=== PATIENT | female | born 1975 | race Two or more races ===

== ENCOUNTER 2019-06-11 15:34 | Outpatient (CLI) | payer OTHER ==
[~2019-06-11] VITALS: Ht 162.6 cm; Wt 77.0 kg
[~2019-06-11 15:34] MED LIST: PREN-99 PO
[2019-06-11 16:00] VITALS: Ht 162.6 cm; Wt 77.0 kg
[2019-06-11 16:07] VITALS: BP 94/62; PULSE 92; RESP 18
== END 2019-06-11 18:50 | disposition home or self-care (01) ==
LOC: OBT 15:34 → L-D 15:35 → OBT 18:50
PROVIDERS: ATTEND Obstetrics & Gynecology
DX: O47.1 False labor at or after 37 completed weeks of gestation (principal); O09.513 Supervision of elderly primigravida, third trimester; Z3A.37 37 weeks gestation of pregnancy
CPT/HCPCS: G0463

== ENCOUNTER 2019-06-14 02:07 | Inpatient (IN) | payer OTHER ==
[~2019-06-14] VITALS: Ht 157.5 cm; Wt 76.4 kg
[2019-06-14 02:24] VITALS: Ht 157.5 cm; Wt 76.4 kg
[2019-06-14 02:25] VITALS: BP 120/58; PULSE 66; RESP 18
[2019-06-14] MEDS ORDERED: LACTATED RINGER'S 1,000 ML IV PRN (02:55)
[2019-06-14] MEDS ORDERED: LIDOCAINE 1% (MPF) 30 ML INJ INJ PRN (03:00)
[2019-06-14] MEDS ORDERED: OXYTOCIN 30 UNITS/LR 500 ML IV PRN ×2 (03:00→15:30)
[2019-06-14] MEDS ORDERED: OXYTOCIN 30 UNITS/LR 500 ML IV SCH ×3 (03:00)
[2019-06-14] MEDS ORDERED: BUTORPHANOL 2 MG INJ IV PRN (03:00)
[2019-06-14] MEDS ORDERED: MISOPROSTOL 200 MCG TAB PR PRN ×2 (03:00→15:30)
[2019-06-14] MEDS ORDERED: CARBOPROST 250 MCG INJ IM PRN ×2 (03:00→15:30)
[2019-06-14] MEDS ORDERED: METHYLERGONOVINE 0.2 MG INJ IM PRN ×2 (03:00→15:30)
[2019-06-14] MEDS: LACTATED RINGER'S 1,000 ML IV SCH ×2 (03:32→13:02)
--- NOTE | 2019-06-14 03:47 | TRIAGE ---
OB Triage Datetime Report Generated by CPN: 06/14/2019 03:47 Datetime: 06/14/2019 03:37 Assessment Type: Admission Assessment Vaginal Bleeding: None Maternal Assessment Level of Consciousness: Keenly Alert, Responsive DTR's/Clonus: DTRs 2+; No Clonus Headache: Denies Blurred Vision: No Respiratory Effort: Unlabored; Regular Rhythm; Equal Expansion Breath Sounds, Left: Clear and Equal Breath Sounds, Right: Clear and Equal Nausea/Vomiting: Denies RUQ Epigastric Pain: Denies Facial Edema: None Fall Risk Assessment History of Falling: (0) No Secondary Diagnosis: (0) No Ambulatory Aid: (0) Bedrest/Nurse Assist IV Therapy: (0) No Gait: (0) Normal/Bedrest/Immobile Mental Status: (0) Oriented to Own Ability Fall Score: 0 Fall Risk Score Definition: No Risk: No action required Pain Assessment Pain Scale: 10 Pain Presence: Intermittent Pain Type: Contraction Pain Location: Back Pain Goal: 3 Membrane Status: Ruptured Membranes Ruptured Date/Time: 06/14/2019 01:45 Membranes Rupture Method: Spontaneous Datetime: 06/14/2019 02:55 Membrane Status: Ruptured Datetime: 06/14/2019 02:42 Stage of : OB Triage Vaginal Exam Dilatation (cms): 0.0 Exam By: Jatinder, RN Datetime: 06/14/2019 02:40 Stage of : OB Triage Assessment Type: Triage Maternal Assessment Level of Consciousness: Keenly Alert, Responsive DTR's/Clonus: DTRs 2+; No Clonus Headache: Denies Blurred Vision: No Respiratory Effort: Unlabored; Regular Rhythm; Equal Expansion Breath Sounds, Left: Clear and Equal Breath Sounds, Right: Clear and Equal Nausea/Vomiting: Denies RUQ Epigastric Pain: Denies Lower Extremities Edema: None Degree: None Upper Extremities Edema: None Degree: None Facial Edema: None Temperature Route: Oral Fall Risk Assessment History of Falling: (0) No Secondary Diagnosis: (0) No Ambulatory Aid: (0) Bedrest/Nurse Assist IV Therapy: (0) No Gait: (0) Normal/Bedrest/Immobile Mental Status: (0) Oriented to Own Ability Fall Score: 0 Fall Risk Score Definition: No Risk: No action required Labor Evaluation Frequency: irregular Monitor Mode: External Duration (sec)2399: 40-60 Pattern: Normal: <= 5 Contractions in 10 Minutes Resting Tone [place]: Relaxed Heart Rate FHR Baseline Rate: 120 Monitor Mode: External US Variability: Moderate 6-25 bpm Accelerations: 15X15 Decelerations: None Category: Category I Pain Assessment Pain Scale: 3 Pain Presence: Intermittent Pain Type: Contraction Pain Location: Abdomen; Back Pain Goal: 3 Pain Relief Measures: Comfort Measures Pool: Negative Nitrazine: Positive Datetime: 06/14/2019 02:33 Time of Arrival: 06/14/2019 02:03 EGA: 38.1 Arrived By: Ambulatory Arrived From: Home Chief Complaint: Patient states that water broke at 0130 and contractions began Movement: Present Contractions: Irregular Time Contractions Began: 06/14/2019 01:30 Rupture of Membranes: Ruptured Vaginal Bleeding: None Abdominal Trauma: Not Applicable Patient Complaints: Contractions Time Provider Notified: 06/14/2019 02:52 Provider Notified: Marry Initial Plan: VS, EFM, Sterile Speculum, SVE Datetime: 06/11/2019 16:17 Fall Score: 0 Fall Risk Score Definition: No Risk: No action required Datetime: 06/11/2019 16:14 EGA: 37.5
--- NOTE | 2019-06-14 04:45 | PREAC ---
Date/Time of Note Date/Time of Note DATE: 06/14/19 TIME: 04:43 Anesthesia Eval and Record Evaluation Time Pre-Procedure Interview DATE: 06/14/19 TIME: 03:58 Age 43 Sex female NPO: 8 hrs Preoperative diagnosis iup @ 38 wks., labor, , h/o hep. B Planned procedure huan Past Medical History Past Medical History: Includes Hepatic: Hepatitis : : (1), Para: (0), Gestational age: (38 wks.) Surgery & Anesthesia Issues No known issue Meds Anticoagulation: No Beta Tristan within 24 hr: No Reason Beta Tristan not given: Pt. not on B-Tristan Reported Medications Vit #76/Iron,Carb/FA (Pnv 29-1 Tablet) 1 Each Tablet, 1 EACH PO DAILY, TAB 06/11/19 Current Medications Lactated Ringer's 1,000 ml @ 125 mls/hr Q8H IV Last administered on 06/14/19at 03:32; Admin Dose 125 MLS/HR; Start 06/14/19 at 02:55 Butorphanol Tartrate (Stadol) 2 mg Q2H PRN IV .PAIN SCALE 6-10; Start 06/14/19 at 03:00 Lidocaine (Xylocaine 1% (Mpf)) 30 ml ONCE PRN INJ .EPISIOTOMY; Start 06/14/19 at 03:00 Oxytocin/Lactated Ringer's 500 ml @ 500 mls/hr ONCE POST IV ; Start 06/14/19 at 03:00 Oxytocin/Lactated Ringer's 500 ml @ 125 mls/hr POST IV ; Start 06/14/19 at 03:00 Lactated Ringer's 1,000 ml @ 2,000 mls/hr Q30M PRN IV .ANESTHESIA; Start 06/14/19 at 02:55 Oxytocin/Lactated Ringer's 500 ml @ 0 mls/hr ONCE PRN IV .VAGINAL BLEEDING; Start 06/14/19 at 03:00 Methylergonovine Maleate (Methergine) 0.2 mg ONCE PRN IM .VAGINAL BLEEDING; Start 06/14/19 at 03:00 Carboprost Tromethamine (Hemabate) 250 mcg ONCE PRN IM .VAGINAL BLEEDING; Start 06/14/19 at 03:00 Misoprostol (Cytotec) 1,000 mcg ONCE PRN [place] .VAGINAL BLEEDING; Start 06/14/19 at 03:00 Oxytocin/Lactated Ringer's 500 ml @ 0 mls/hr FOR INDUCTION IV ; Start 06/14/19 at 03:00 Meds reviewed: Yes Allergies Coded Allergies: No Known Drug Allergies (Verified Allergy, Unknown, 06/11/19) Allergies Reviewed: Yes Labs/Studies Labs Reviewed: Reviewed by anesthesiologist Result Diagram: 06/14/19 0327 Laboratory Tests 06/14/19 03:27 test: Positive Studies: ECG (n/a), CXR (n/a) Pre-procedure Exam Last vitals Vital Signs Date Temp Pulse Resp B/P (MAP) Pulse Ox O2 O2 Flow FiO2 Time Delivery Rate 06/14/19 98.3 66 18 120/58 Room Air 02:25 (78) Airway: Adequate mouth opening, Adequate thyromental dist Mallampati: Mallampati II Teeth: Normal Lung: Normal Heart: Normal ASA Physical Status ASA physical status: 3 Emergency: E Planned Anesthetic Neuraxial: Epidural Planned Pain Management Epidural, Parenteral pain med, Local by surgeon Pre-operative Attestations Prior to commencing anesthesia and surgery, the patient was re-evaluated, there was verification of: *The patient's identity *The results of appropriate recent lab work and preoperative vital signs *The above evaluation not changing prior to induction *Anesthetic plan, risk benefits, alternative and complications discussed with patient/family; questions answered; patient/family understands, accepts and wishes to proceed. Professional [employer] Fisherman used MEGHAN BRADLEY MD Jun 14, 2019 04:45
[2019-06-14] MEDS ORDERED: FENTAnyl 2MCG/ML-ROPIV 0.2% 100 ML BAG EPI SCH (05:00)
[2019-06-14] MEDS ORDERED: NALOXONE (0.4 MG/ML) INJ IV PRN (05:00)
[2019-06-14] MEDS ORDERED: ONDANSETRON 4 MG INJ IV PRN ×2 (05:00→15:30)
[2019-06-14] MEDS ORDERED: NALBUPHINE HCL (10 MG/1 ML) INJ IV PRN (05:00)
[2019-06-14] MEDS ORDERED: TERBUTALINE 1 MG/ML INJ SC ONE (08:30)
[2019-06-14] MEDS ORDERED: TERBUTALINE 1 ML ONE (08:34)
--- NOTE | 2019-06-14 09:06 | PN ---
Date/Time of Note Date/Time of Note DATE: 06/14/19 TIME: 09:04 OB Subjective Subjective Subjective transport aircrewman used called to fbc8 for deceleration decel noted x 8 min with david to 50 fse placed terbutaline ordered positional movements not on pitocin initial sve on exam was c/c.+2 during contraction. asked to break down bed in anticipation for trial of pushing without contraction, sve 6/c/[address] patient back in original position resolution of prolonged deceleration MILESTONE,MARIA DOLORES HANSON Jun 14, 2019 09:06
--- NOTE | 2019-06-14 09:51 | NSTRPT ---
NST Information Datetime Report Generated by CPN: 06/14/2019 09:51 Datetime: 06/11/2019 10:17 NST Information EGA: 37.5 Datetime: 06/11/2019 10:15 Test Number: 1 Time on Monitor: 06/11/2019 10:49 Time off Monitor: 06/11/2019 11:26 NST Duration (Min): 37 Reason for NST: Other Reason for NST Other: large fibroid, Advanced Maternal Age Test and Monitor Explained: Monitor Explained; Test Explained; Verbalized Understanding Pulse: 87 Resp: 18 SBP: 97 DBP: 54 Test Evaluation NST Interventions: None Patient States Movement: Present Contraction Frequency: NONE FHR Baseline : 140 Variability: Moderate 6-25bpm Accelerations: 15X15 Decelerations: None FHR Category: Category I NST Results: Reactive Comments: TO US ROBERT 22.0 cm cephalic Electronically Signed By E-Signature: with User ID: [id number], Addendum/Amendment: Signed for Dr. Rudolph.
[2019-06-14] MEDS ORDERED: MINERAL OIL LIGHT 10 ML VIAL TOP ONE (11:30)
[2019-06-14] MEDS: OXYTOCIN 30 UNITS/LR 500 ML IV SCH ×2 (15:15→17:22)
--- NOTE | 2019-06-14 15:15 | OPPN ---
Date/Time of Note Date/Time of Note DATE: 06/14/19 TIME: 15:11 Operative Report Planned Procedure Procedure date Jun 14, 2019 Procedure(s) VACUMM APPLICATION Performed by see signature line Metal Forger'S Assistant: A 2nd Metal Forger'S Assistant none Pre-procedure diagnosis 38 1/7 WEEKS RUPTURED BAG OF WATER [id number] Anesthesia Type: [id number] epidural Post-Procedure Post-procedure diagnosis 38 1/7 IUP MATERNAL EXHAUSTION Findings Live Baby BOY, Apgars 9and 9, weight 7LBS 5OZ Estimated Blood Loss: 300 - 400 mls Specimen(s) none Grafts/Implant(s) none Complication(s) none KEVIN SMITH MD Jun 14, 2019 15:15
[2019-06-14] MEDS ORDERED: LANOLIN HPA 1 PKT TOP PRN (15:30)
[2019-06-14] MEDS ORDERED: HYDROCODONE/APAP (5/325) TAB PO PRN ×2 (15:30)
[2019-06-14] MEDS ORDERED: WITCH HAZEL/GLYCERIN PAD PR PRN (15:30)
[2019-06-14] MEDS ORDERED: DIPHENHYDRAMINE 25 MG CAP PO PRN (15:30)
[2019-06-14] MEDS ORDERED: ZOLPIDEM 5 MG TAB PO PRN (15:30)
[2019-06-14] MEDS ORDERED: NA PHOSPHATE/BIPHOS 133 ML ENEMA PR PRN (15:30)
[2019-06-14] MEDS ORDERED: BENZOCAINE 20% 56 ML SPRAY TOP PRN (15:30)
[2019-06-14] MEDS ORDERED: METHYLERGONOVINE 0.2 MG TAB PO PRN (15:30)
[2019-06-14] MEDS ORDERED: MAGNESIUM HYDROXIDE 30ML CUP PO PRN (15:30)
[2019-06-14 16:30] VITALS: BP 98/58; PULSE 81; RESP 18
[2019-06-14] MEDS: LACTATED RINGER'S 1,000 ML IV* SCH ×2 (16:30→23:15)
[2019-06-14 17:30] VITALS: BP 99/60; RESP 20
[2019-06-14] MEDS: IBUPROFEN 800 MG TAB PO PRN (18:09)
[2019-06-14 20:00] VITALS: BP 98/52; PULSE 66; RESP 20
[2019-06-14] MEDS: SENNA/DOCUSATE NA (8.6MG/50MG) TAB PO SCH (21:50)
[2019-06-15] VITALS: BP 136/74; PULSE 69; RESP 18
[2019-06-15 04:00] VITALS: BP 94/50; PULSE 77; RESP 18
[2019-06-15] MEDS: IBUPROFEN 800 MG TAB PO PRN ×4 (05:47→23:37)
--- NOTE | 2019-06-15 06:53 | PREOPHP ---
DATE OF ADMISSION: 06/14/2019 HISTORY OF PRESENT ILLNESS: This is a 43-year-old lady, 1, para 0, EDC 06/27/2019 at 38-1/7 weeks, admitted to labor and delivery area in early labor with leaking bag of water since 1:45 a.m. on 06/14/2019 followed by contractions. She had care in my [place] office and the care was uneventful except that she is known to have fibroid uterus about 7 x 7 cm. PAST PERSONAL HISTORY: No history of diabetes, TB, asthma. ALLERGIES: NO ALLERGIES. SOCIAL HISTORY: The patient does not smoke. She does not drink. MEDICATIONS: She does not take any drugs except her iron and vitamins. GYNECOLOGIC HISTORY: She had menarche at the age of 15, every 28 days interval, 3 to 4 days duration, and moderate in amount. FAMILY HISTORY: Sister has diabetes, otherwise noncontributory. REVIEW OF SYSTEMS: CARDIOVASCULAR: No chest pains. RESPIRATORY: No cough. GASTROINTESTINAL: No diarrhea, no vomiting. GENITOURINARY: No dysuria. PHYSICAL EXAMINATION: GENERAL: Reveals a conscious, coherent lady and in no acute distress. VITAL SIGNS: Her blood pressure 120/80, pulse rate 80 per minute, respirations 16 per minute. BREASTS, HEART AND LUNGS: Within normal limits. ABDOMEN: Soft, fundic height 37 cm. heart tones 140 per minute. PELVIC: On admission done by nurse revealed the cervix to be 2 cm dilated, 100% effaced, station -2 in cephalic presentation with the bag of water ruptured. Nitrazine PROM test was positive. EXTREMITIES: No pedal edema. ADMITTING DIAGNOSIS: A 38 and 1/7 weeks intrauterine in labor with ruptured bag of water. The patient was planned to be observed for progress of labor. Ultrasound was ordered and the estimated weight is about 7 pounds 3 ounces. The plans of delivery were explained to the patient and to her partner, asked to go for vaginal delivery. The risks, benefits, and alternatives of vaginal delivery and was explained to the patient and the risks of explained. Both of them wanted to go for vaginal delivery, so she was planned to be observed for progress of labor. If contractions, then she will be given Pitocin augmentation if needed, so the patient was started on Pitocin augmentation and she had 1 episode of prolonged deceleration of 7 minutes and oxygen and change of position was done and scalp electrode was inserted by the laborist and the baby had recovered. After a few hours of recovery, then the patient was restarted on Pitocin augmentation. Then at 12:35, the patient was noted to be completely dilated and at a station 0. So the epidural was stopped and the Pitocin was restarted and the patient was coached to push and the patient had pushed from 12:25. Dictated By: KEVIN BOWMAN/CANDY Conf#: [id number] DID#: [id number] MTDD
[2019-06-15 08:18] VITALS: BP 96/50; PULSE 73; RESP 18
--- NOTE | 2019-06-15 08:43 | OPR ---
DATE OF OPERATION: 06/15/2019 This is a 43-year-old lady, 1, EDC 06/27/2019 at 38-1/7 weeks, admitted to labor and delivery area in labor with ruptured bag of water at 1:45 a.m. 06/14/2019. HISTORY OF PRESENT ILLNESS: See dictated history and physical. PHYSICAL EXAMINATION: See dictated history and physical. ADMITTING DIAGNOSIS: 38 and 1/7-weeks intrauterine in labor. PROGRESS OF LABOR: See dictated history and physical. The patient had 17 minutes prolonged decelera tion in the morning at 8:30 a.m. and the baby had recovered. She was restarted on Pitocin augmentati on and the patient received labor epidural as well and the patient progressed well. When she was com pleted dilated and when the patient felt the pushing after the epidural was stopped, she was coached to push and the patient was pushing for almost 1-1/2 hours and the baby went up to almost , b ut the patient cannot push the baby head. Because of maternal exhaustion, the patient complains of b eing very tired, so when she was almost , then the vacuum was applied once and after 4 second s delivered a healthy baby boy, Apgars 9 and 9 at 14:25 p.m. weighing 7 pounds 5 ounces, 3325 grams, 19-1/2 inches long over a midline episiotomy. The placenta was delivered spontaneously and complete. Manual exploration of the uterus revealed no membranes left behind. Cervix, vagina, and vulv a were free of hematoma. The position was direct occiput anterior. There were 3 vessels in the cord . The placenta was normal with a small shiny side and a pinkish maternal side. Midline episio dixie was repaired in layers using 2-0 chronic with 1% Xylocaine. The patient tolerated the delivery well. ESTIMATED BLOOD LOSS: About 400. Vital signs were stable during and after the delivery. Dictated By: KEVIN BOWMAN/CANDY Conf#: [id number] DID#: [id number]
[2019-06-15] MEDS: SENNA/DOCUSATE NA (8.6MG/50MG) TAB PO SCH ×2 (09:06→20:57)
[2019-06-15 12:10] VITALS: BP 90/55; PULSE 68; RESP 17
--- NOTE | 2019-06-15 14:28 | PN ---
Date/Time of Note Date/Time of Note DATE: 06/15/19 TIME: 14:26 Assessment/Plan VTE Prophylaxis Risk score (from Ns)>0 risk: 1 SCD applied (from Ns): No SCD contraindicated: low risk/ambulating Pharmacological prophylaxis: NA/contraindicated Pharm contraindication: low risk/ambulating Lines/Catheters IV [facility] Peripheral IV Assessment/Plan Assessment/Plan POST DAY 1 CHRONIC IRON DEFICIENCY ANEMIA HOME TOMORROW RETURN TO CLINIC IN 2 WEEKS CONTINUE WITH VITAMINS OD AND FERROUS SULFATE PO TID DIET ADVISED COUNSELED INSTRUCTED CALL OFFICE IF THERE IS ANY PROBLEMS OR CONCERN Result Diagram: 06/15/19 0736 Results 24hrs Laboratory Tests Test 06/15/19 07:36 White Blood Count 12.8 #H Red Blood Count 3.51 #L Hemoglobin 9.8 #L Hematocrit 30.1 #L Mean Corpuscular Volume 85.8 Mean Corpuscular Hemoglobin 27.9 L Mean Corpuscular Hemoglobin Concent 32.6 Red Cell Distribution Width 14.1 Platelet Count 134 #L Mean Platelet Volume 10.8 H Immature Granulocytes % 1.000 H Neutrophils % 80.6 H Lymphocytes % 12.2 L Monocytes % 5.5 Eosinophils % 0.5 Basophils % 0.2 Nucleated Red Blood Cells % 0.0 Immature Granulocytes # 0.130 H Neutrophils # 10.3 H Lymphocytes # 1.6 Monocytes # 0.7 Eosinophils # 0.1 Basophils # 0.0 Nucleated Red Blood Cells # 0.0 Subjective 24 Hr Interval Summary Free Text/Dictation FEELS GOOD, GOOD URINE OUTPUT, GOOD BOWEL MOVEMENT Exam/Review of Systems Exam Vitals Vital Signs Date Temp Pulse Resp B/P (MAP) Pulse Ox O2 O2 Flow FiO2 Time Delivery Rate 06/15/19 98.2 68 17 90/55 (67) Room Air 12:10 Intake and Output 06/14/19 06/14/19 06/15/19 1515:00 23:00 07:00 IntakeIntake Total 1900 ml 270 ml OutputOutput Total 600 ml 1323 ml BalanceBalance 1300 ml -1053 ml Exam VITAL SIGNS STABLE: YES AFEBRILE: YES BREAST NOT ENGORGED, NON-TENDER, NO APPRECIABLE MASS: YES LUNGS CLEAR, NO RALES, WHEEZES, RHONCHI: YES SINUS RHYTHM WITHOUT MURMUR: YES ABDOMEN: NON-TENDER FUNDUS: BELOW UMBILICUS BOWEL SOUNDS: PRESENT UTERUS: FIRM INTACT PERINEUM: YES LOCHIA: LIGHT DEEP TENDON REFLEXES: 0 EXTREMITIES: NO CALF TENDERNESS EDEMA SCALE: NONE Results Results 24hrs Laboratory Tests Test 06/15/19 07:36 White Blood Count 12.8 #H Red Blood Count 3.51 #L Hemoglobin 9.8 #L Hematocrit 30.1 #L Mean Corpuscular Volume 85.8 Mean Corpuscular Hemoglobin 27.9 L Mean Corpuscular Hemoglobin Concent 32.6 Red Cell Distribution Width 14.1 Platelet Count 134 #L Mean Platelet Volume 10.8 H Immature Granulocytes % 1.000 H Neutrophils % 80.6 H Lymphocytes % 12.2 L Monocytes % 5.5 Eosinophils % 0.5 Basophils % 0.2 Nucleated Red Blood Cells % 0.0 Immature Granulocytes # 0.130 H Neutrophils # 10.3 H Lymphocytes # 1.6 Monocytes # 0.7 Eosinophils # 0.1 Basophils # 0.0 Nucleated Red Blood Cells # 0.0 Medications Medication Current Medications Butorphanol Tartrate (Stadol) 2 mg Q2H PRN IV .PAIN SCALE 6-10; Start 06/14/19 at 03:00 Lidocaine (Xylocaine 1% (Mpf)) 30 ml ONCE PRN INJ .EPISIOTOMY Last administered on 06/14/19 14:32; Admin Dose 30 ML; Start 06/14/19 at 03:00 Oxytocin/Lactated Ringer's 500 ml @ 500 mls/hr ONCE POST IV Last administered on 06/14/19 14:29; Admin Dose 500 MLS/HR; Start 06/14/19 at 03:00 Oxytocin/Lactated Ringer's 500 ml @ 125 mls/hr POST IV Last administered on 06/14/19 14:53; Admin Dose 125 MLS/HR; Start 06/14/19 at 03:00 Lactated Ringer's 1,000 ml @ 2,000 mls/hr Q30M PRN IV .ANESTHESIA Last administered on 06/14/19 04:47; Admin Dose 2,000 MLS/HR; Start 06/14/19 at 02:55 Oxytocin/Lactated Ringer's 500 ml @ 0 mls/hr FOR INDUCTION IV Last administered on 06/14/19 07:53; Admin Dose 1 MLS/HR; Start 06/14/19 at 03:00 Fentanyl/ Ropivacaine 100 ml EPIDURAL INFUSION EPI ; Start 06/14/19 at 05:00 Lactated Ringer's 1,000 ml @ 125 mls/hr Q8H IV* ; Start 06/14/19 at 15:15 Methylergonovine Maleate (Methergine) 0.2 mg Q6H PRN PO .VAGINAL BLEED; Start 06/14/19 at 15:30 Ondansetron HCl (Zofran Inj) 4 mg Q6H PRN IV NAUSEA/VOMITING; Start 06/14/19 at 15:30 Diphenhydramine HCl (Benadryl) 25 mg Q6H PRN PO .PRUTITUS; Start 06/14/19 at 15:30 Zolpidem Tartrate (Ambien) 5 mg QHS PRN PO .INSOMNIA; Start 06/14/19 at 15:30 Senna/Docusate Sodium (Senokot-S) 1 tab BID PO Last administered on 06/15/19at 09:06; Admin Dose 1 TAB; Start 06/14/19 at 21:00 Magnesium Hydroxide (Milk Of Mag) 30 ml Q12H PRN PO .CONSTIPATION; Start 06/14/19 at 15:30 Sodium Biphosphate/ Sodium Phosphate (Fleet Enema) 133 ml DAILY PRN [place] .CONSTIPATION; Start 06/14/19 at 15:30 Witch Hui/ Glycerin (Tucks Pads) 1 pad BEDSIDE MEDICATION PRN [place] .HEMORRHOID/EPISIOTOMY PAIN Last administered on 06/14/19at 18:08; Admin Dose 1 PAD; Start 06/14/19 at 15:30 Benzocaine (Dermoplast [place]) 1 spray BEDSIDE MEDICATION PRN [place] .HEMMORHOID/EPISIOTOMY PAIN Last administered on 06/14/19at 18:08; Admin Dose 1 SPRAY; Start 06/14/19 at 15:30 Lanolin (Lanolin Hpa) 1 applic BEDSIDE MEDICATION PRN TOP .NIPPLES Last administered on 06/14/19at 18:08; Admin Dose 1 APPLIC; Start 06/14/19 at 15:30 Measles/Mumps/ Rubella Vaccine Live (Mmr Ii Vaccine) 0.5 ml ONCE ONCE SC* ; Start 06/16/19 at 09:00; Stop 06/16/19 at 09:01 Diphtheria/ Tetanus/Acell Pertussis (Adacel) 0.5 ml ONCE ONCE IM* ; Start at 09:00; Stop 06/16/19 at 09:01 Varicella Virus Vaccine Live (Varivax Vaccine With Diluent) 1,350 unit ONCE ONCE SC* ; Start 06/16/19 at 09:00; Stop 06/16/19 at 09:01 Oxytocin/Lactated Ringer's 500 ml @ 0 mls/hr ONCE PRN IV .VAGINAL BLEEDING; Start 06/14/19 at 15:30 Methylergonovine Maleate (Methergine) 0.2 mg ONCE PRN IM .VAGINAL BLEEDING; Start 06/14/19 at 15:30 Carboprost Tromethamine (Hemabate) 250 mcg ONCE PRN IM .VAGINAL BLEEDING; Start 06/14/19 at 15:30 Misoprostol (Cytotec) 1,000 mcg ONCE PRN [place] .VAGINAL BLEEDING; Start 06/14/19 at 15:30 Ibuprofen (Motrin) 800 mg Q6H PRN PO MILD PAIN LEVEL 1-3 Last administered on 06/15/19at 12:19; Admin Dose 800 MG; Start 06/14/19 at 15:30 Acetaminophen/ Hydrocodone Bitart ([place] (5/325)) 1 tab Q4H PRN PO MODERATE PAIN LEVEL 4-6; Start 06/14/19 at 15:30 Acetaminophen/ Hydrocodone Bitart ([place] (5/325)) 2 tab Q4H PRN PO MODERATE PAIN LEVEL 4-6; Start 06/14/19 at 15:30 KEVIN SMITH MD Jun 15, 2019 14:28
[2019-06-15 16:59] VITALS: BP 102/52; PULSE 81; RESP 16
[2019-06-15 20:00] VITALS: BP 101/55; PULSE 94; RESP 18
[2019-06-16 04:01] VITALS: BP 98/55; PULSE 71; RESP 18
[2019-06-16] MEDS: IBUPROFEN 800 MG TAB PO PRN ×2 (05:39→12:37)
[2019-06-16 08:00] VITALS: BP 101/54; PULSE 84; RESP 16
[2019-06-16] MEDS ORDERED: MEASLES,MUMPS,RUBELLA VACCINE INJ SC* ONE (09:00)
[2019-06-16] MEDS ORDERED: VARICELLA VACCINE LIVE/PF 1,350 UNIT/0.5 ML ML SC* ONE (09:00)
[2019-06-16] MEDS ORDERED: DIPHTH/TET/ACEL PERTUSS (ADULT) 0.5 ML VIAL IM* ONE (09:00)
[2019-06-16] MEDS: SENNA/DOCUSATE NA (8.6MG/50MG) TAB PO SCH (09:38)
--- NOTE | 2019-06-17 15:06 | DELSUM ---
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 Vice President [employer] (Ex ): [place], Javed MATERNAL INFORMATION Delivery Anesthesia: Epidural Medications in Delivery: OCYTOCIN 30 MU IN 500 ML OF LR Delivery QBL (ml): 400 Placenta Cultured: No Maternal Complications: Other Other Maternal Complications: AMA, HEP B POSITIVE, LARGE FUNDAL FIBROID LABOR SUMMARY EDC: 06/27/2019 00:00 No. Babies in Womb: 1 Attempted: No Labor Anesthesia: Epidural LABOR INFORMATION Reason for Induction: Not Applicable Onset of Labor: 06/14/2019 01:45 Complete Dilatation: 06/14/2019 12:21 Group B Beta Strep: Negative Steroids Given: None Reason Steroids Not Administered: Not Applicable MEMBRANES Membranes Rupture Method: Spontaneous Rupture of Membranes: 06/14/2019 01:45 Length of Rupture (hr): 12.67 Amniotic Fluid Color: Clear Amniotic Fluid Amount: Moderate STAGES OF LABOR Stage 1 hr: 10 Stage 1 min: 36 Stage 2 hr: 2 Stage 2 min: 4 Stage 3 hr: 0 Stage 3 min: 2 Total Time in Labor hr: 12 Total Time in Labor min: 42 VAGINAL DELIVERY Episiotomy: Median Laceration Extension: N/A Laceration Type: None Laceration Repair: Not Applicable Initial Vag Sponge Count: 10 Final Vag Sponge Count: 10 Initial Vag Sharps Count: 1 Final Vag Sharps Count: 3 Sponge Count Correct: Yes; Vaginal Sweep Performed Sharps Count Correct: Yes BABY A INFORMATION Infant Delivery Date/Time: 06/14/2019 14:25 Method of Delivery: Vaginal Born in Route : No : N/A Forceps: N/A Vacuum Extraction: Successful Shoulder Dystocia : N/A SHOULDER DYSTOCIA BABY A Delivery Date/Time: 06/14/2019 14:25 PRESENTATION/POSITION BABY A Presentation: Cephalic Cephalic Presentation: Vertex Vertex Position: Left Occipital Anterior Breech Presentation: N/A PLACENTA INFORMATION BABY A Placenta Delivery Time : 06/14/2019 14:27 Placenta Method of Delivery: Spontaneous Placenta Status: Delivered SCORES BABY A Heart Rate 1 min: >100 bpm Resp Effort 1 min: Good Cry Reflex Irritability 1 min: Cough/Sneeze/Pulls Away Muscle Tone 1 min: Active Motion Color 1 min: Body [place], Extremit Blue Resuscitation Effort 1 min: Tactile Stimulation SCORE 1 MIN: 9 Heart Rate 5 min: >100 bpm Resp Effort 5 min: Good Cry Reflex Irritability 5 min: Cough/Sneeze/Pulls Away Muscle Tone 5 min: Active Motion Color 5 min: Body [place], Extremit Blue SCORE 5 MIN: 9 INFANT INFORMATION BABY A Gestational Age at Delivery: 38.1 Gestational Status: Early Term- 37- 38.6 Weeks Infant Outcome : Liveborn, with signs of life Condition : Stable Infant Sex: Male IDENTIFICATION/MEDS BABY A ID Band Number: [id number] ID Band Location: Right Leg; Left Arm Sensor Number: [id number] Sensor Location : Cord Clamp Vitamin K Given : Not Given Erythromycin Given: Not Given WEIGHT/LENGTH BABY A Infant Birthweight (gm): 3325 Weight (lb): 7 Weight (oz): 5 Infant Length (in): 19.50 Length (cm): 49.53 CORD INFORMATION BABY A No. Cord Vessels: 3 Nuchal Cord : N/A Cord Blood Taken: Yes Suction: Mouth; Nose ASSESSMENT BABY A Infant Complications: Multiple Variable Decels Physical Findings at Delivery: Molding of the Head Infant Respirations: Appears Normal Salon Designer/ALS Called : No Infant Care By: walt nieto, and jerald Velasquez rn Transferred To: Remains with Mother
--- NOTE | 2019-06-19 08:56 | PAC ---
Date/Time of Note Date/Time of Note DATE: 06/15/19 TIME: 10:00 Post-Anesthesia Notes Post-Anesthesia Note Last documented vital signs Vital Signs Date Temp Pulse Resp B/P (MAP) Pulse Ox O2 O2 Flow FiO2 Time Delivery Rate 06/16/19 98.0 84 16 101/54 Room Air 08:00 (70) Activity: WNL Respiratory function: WNL Cardiovascular function: WNL Mental status: Baseline Pain reasonably controlled: Yes Hydration appropriate: Yes Nausea/Vomiting absent: Yes MEGHAN BRADLEY MD Jun 19, 2019 08:56
--- NOTE | 2019-06-20 11:24 | DS ---
DATE OF ADMISSION: 06/14/2019 DATE OF DISCHARGE: 06/16/2019 This is a 43-year-old lady, 1, at 38 and 1/7 weeks, admitted in labor. HISTORY OF PRESENT ILLNESS: See dictated H and P dictated history and physical. ADMITTING DIAGNOSIS: A 38 and 1/7 weeks intrauterine in labor and fibroid uterus. The pat ient was observed for progress of labor. PROGRESS OF LABOR: See dictated history and physical. HOSPITAL COURSE: Patient progressed well during the pushing and when the baby was the patie nt was very exhausted and she did not like to push any more so that the vacuum was applied once and a fter 4 seconds delivered a healthy baby boy, Apgars 9 and 9, weighing 7 pounds 5 ounces, 3325 grams, 19-1/2 inches long over a midline episiotomy. She tolerated delivery well. She did have good postpa rtum course. The diet was advanced from liquid to general diet. She was discharged home on general diet and activity was restricted. She had good bowel movement and was discharged in good and stable condition on general diet and activity was restricted. She was counseled. She was instru cted. She was told to come back to the clinic in 2 weeks. She was told to continue to take her iron and vitamins at home. She was discharged home in good and stable condition. Hematocrit at discharg e is 30.1, hemoglobin 9.8. FINAL DIAGNOSES: A 38 and 1/7 weeks intrauterine in labor, delivered, advanced maternal ag e, fibroid uterus, and maternal exhaustion. Dictated By: KEVIN BOWMAN/CANDY Conf#: [id number] DID#: [id number]
== END 2019-06-16 14:40 | disposition home or self-care (01) | DRG 807 ==
LOC: OBT 02:07 → L-D 02:07 → OBT 02:52 → PP1 16:33
PROVIDERS: ADMIT Obstetrics & Gynecology; ATTEND Obstetrics & Gynecology
PROC: 10E0XZZ Delivery of Products of Conception, External Approach (ICD-10-PCS; principal; 2019-06-15)
PROC: 0W8NXZZ Division of Female Perineum, External Approach (ICD-10-PCS; 2019-06-15)
DX: O34.13 Maternal care for benign tumor of corpus uteri, third trimester (principal); Z37.0 Single live birth; Z3A.38 38 weeks gestation of pregnancy
CPT/HCPCS: 62322; 76815; 85025; 85610; 85730; 86592; 86704; 86850; 86900; 86901; 87340; 90715; 90716; 99464; G0463; J2590; J3010; J3105; J7120